=== PATIENT | female | born 1955 | race Caucasian/White ===

== ENCOUNTER 2016-09-04 09:01 | Day surgery (SDC) | payer OTHER ==
[~2016-09-04] VITALS: Ht 152.4 cm; Wt 70.8 kg
[~2016-09-04 09:01] MED LIST: ALEN70TA30 PO; ALPR0.5T6 PO; CETI10TA34 PO; HYDR-3498 PO; HYOS0.1212 SL; LETR2.5T PO; LEVO112T42 PO
[2016-09-04] MEDS ORDERED: OMEPRAZOLE (09:42)
[2016-09-04] MEDS ORDERED: COLACE (09:42)
[2016-09-04] MEDS ORDERED: LINZESS (09:42)
[2016-09-04 09:44] VITALS: Ht 152.4 cm; Wt 70.8 kg
[2016-09-04 10:06] VITALS: BP 129/77; PULSE 88; RESP 18
[2016-09-04] MEDS ORDERED: MIDAZOLAM 1 MG/ML 2 ML INJ ONE ×2 (10:58)
[2016-09-04] MEDS ORDERED: FENTAnyl 50 MCG/ML VIAL ONE (10:58)
--- NOTE | 2016-09-04 11:22 | GILP ---
DATE OF PROCEDURE: 09/04/2016 NAME OF PROCEDURES: 1. Esophagogastroduodenoscopy and biopsy. 2. Colonoscopy and biopsy. SURGEON: Fara Ruiz MD PREOPERATIVE DIAGNOSES: 1. Abdominal pain. 2. Change in bowel habit. POSTOPERATIVE DIAGNOSES: 1. Bile reflux gastritis. 2. Gastric mucosal biopsies were taken for Helicobacter pylori test. 3. Colonoscopy all the way to the cecum. 4. Small right colon polyp was removed using the biopsy forceps. 5. Internal hemorrhoids. INDICATION FOR THE PROCEDURE: Ms. Lisa George is a 61-year-old female patient who had upper abd ominal pain, not responding to therapy. She also had change in the bowel habit. The patient was sc heduled for endoscopy and colonoscopy for further evaluation. The procedures and possible complications are well explained to the patient, she understood and cons ented to the procedure. DESCRIPTION OF PROCEDURE: Under the influence of fentanyl and Versed, the gastroscope was carefully introduced into the esophagus and under direct vision, it was advanced to the stomach and through t he pylorus into the duodenal bulb and descending duodenum. FINDINGS: ESOPHAGUS: The mucosa was normal. STOMACH: The patient had gastritis. Gastric mucosal biopsies were taken for H. pylori test. The p atient had mild reflux. DUODENUM: Normal. The colonoscope was carefully introduced in the rectum and under direct vision, it was advanced all the way to the cecum. FINDINGS: The patient had a small right colon polyp and it was removed using the biopsy forceps. S he had internal hemorrhoids. She tolerated the procedures very well and there was no complication from the procedures. At the en d of the procedures, she was awake with stable vital signs and she was discharged home to the care o f her family. IMPRESSION: 1. Bile reflux gastritis. 2. Gastric mucosal biopsies were taken for Helicobacter pylori test. 3. Colonoscopy all the way to the cecum. 4. Small right colon polyp was removed. 5. Internal hemorrhoids. PLAN: 1. Continue omeprazole and Linzess. 2. Await histopathology reports. 3. Next screening colonoscopy in 10 years. Dictated By: FARA RUIZ MD GD/RODOLFO Conf#: [id number] DID#: [id number] CC: FARA RUIZ MD;*EndCC*
== END 2016-09-04 11:54 | disposition home or self-care (01) ==
LOC: GIL 09:01
PROVIDERS: ATTEND Internal Medicine Gastroenterology
DX: K63.5 Polyp of colon (principal); K29.60 Other gastritis without bleeding; K64.8 Other hemorrhoids
CPT/HCPCS: 43239; 45380; 87081; 88305; J2250; J3010; Z7610

== ENCOUNTER 2017-10-30 16:49 | Emergency (ER) | END 2017-10-30 18:10 | disposition home or self-care (01) ==

== ENCOUNTER 2017-11-01 09:57 | Emergency (ER) | END 2017-11-01 10:50 | disposition home or self-care (01) ==

== ENCOUNTER 2018-02-22 15:52 | Emergency (ER) | END 2018-02-22 20:46 | disposition home or self-care (01) ==

== ENCOUNTER 2018-09-27 15:18 | Emergency (ER) | payer OTHER ==
[~2018-09-27] VITALS: Ht 154.9 cm; Wt 73.0 kg
[~2018-09-27 15:18] MED LIST changes: -ALEN70TA30 PO; -ALPR0.5T6 PO; +BENZ200C68 PO; -CETI10TA34 PO; +COLACE; -HYDR-3498 PO; +HYDR-4011 PO; -HYOS0.1212 SL; +IBUP-1542 PO; -LETR2.5T PO; +LEVO500T48 PO; +LINZESS; +MED4DP PO; +OMEPRAZOLE; +PROM5SYR2 PO
[2018-09-27 15:20] VITALS: BP 163/78; PULSE 89; RESP 18; Ht 154.9 cm; Wt 73.0 kg
[2018-09-27] MEDS ORDERED: ONDANSETRON (ODT) 4 MG TAB ODT STA (16:35)
[2018-09-27] MEDS ORDERED: morphine 4 MG/ML VIAL IM STA (16:35)
--- NOTE | 2018-09-27 16:49 | ERD ---
ER Documentation Chief Complaint Chief Complaint CHRONIC LOW BACK PAIN X 5 DAYS HPI 63-year-old female presents with pain in her lower back that radiates down her right lower extremity she has had for 5 days. She has had this type of pain in the past that she does have a history of sciatica. Motrin used to help her but she continues to take Motrin is not helping anymore. No injury or trauma. No bowel or bladder incontinence or saddle anesthesia. At times she gets some tingling type of pain in her right lower extremity. She is ambulatory. No fevers. No urinary symptoms. ROS All systems reviewed and are negative except as per history of present illness. Medications Home Meds Active Scripts Hydrocodone/Acetaminophen ([place] 5-325 Tablet) 1 Each Tablet, 1 EACH PO Q6, #15 TAB Prov:NANDINI CORDERO 02/22/18 Ibuprofen* (Motrin*) 600 Mg Tab, 600 MG PO Q6, #30 TAB Prov:NANDINI CORDERO 02/22/18 Promethazine HCl/Codeine (Prometh-Codein 6.25-10 mg/5 ml) 5 Ml Syrup, 5 ML PO Q6 for 7 Days Prov:NANDINI CORDERO 11/01/17 Benzonatate* (Benzonatate*) 200 Mg Capsule, 200 MG PO TID PRN for COUGH, #15 CAP Prov:POPPY SWANSON PA-C 10/30/17 Levofloxacin* (Levaquin*) 500 Mg Tablet, 500 MG PO DAILY for 10 Days, #10 TAB Prov:POPPY SWANSON PA-C 10/30/17 Methylprednisolone* (Medrol* DOSE PACK) 4 Mg/Dose-Pack Tab.ds.pk, 4 MG PO . DIRECTED, #1 PACKET Prov:POPPY SWANSON PA-C 10/30/17 Reported Medications [Colace] No Conflict Check 09/04/16 [Linzess] No Conflict Check 09/04/16 [Omeprazole] No Conflict Check 09/04/16 Levothyroxine Sodium* (Levoxyl*) 112 Mcg Tablet, 112 MCG PO BEFORE BREAKFAST, #30 TAB 11/27/15 Allergies Allergies: Coded Allergies: No Known Allergy (Unverified , 09/27/18) PMhx/Soc History of Surgery: Yes (HYSTERECTOMY, APPENDECTOMY) Anesthesia Reaction: No Hx Neurological Disorder: No Hx Respiratory Disorders: No Hx Cardiac Disorders: No Hx Miscellaneous Medical Probl: Yes (BREAST CA) Hx Alcohol Use: No Hx Substance Use: No Hx Tobacco Use: No FmHx Family History: No diabetes Physical Exam Vitals Vital Signs Date Temp Pulse Resp B/P (MAP) Pulse Ox O2 O2 Flow FiO2 Time Delivery Rate 09/27/18 98.1 89 18 163/78 100 15:20 (106) Physical Exam INITIAL VITAL SIGNS: Reviewed by me GENERAL: Awake, alert and oriented x 4, well appearing, nontoxic, speaking in full sentences. No acute distress HEAD: Atraumatic NECK: Supple. No masses. Full range of motion. No meningismus. No midline tenderness. RESPIRATORY: Clear to auscultation bilaterally. Symmetric chest wall rise. No wheezing or rales. No accessory muscle use. CV: Regular rate and rhythm. No murmurs, rubs, or gallops. EXTREMITIES: No clubbing or cyanosis. No edema. Moving all extremities normally. Sensation to light touch is intact throughout Back Exam: Compartments: Soft Motor: Normal flexion and extension of bilateral hip/knee/ankle/foot Sensation: Intact to light touch throughout Bones: No midline TTP Results 24 hrs Current Medications Medications Dose Sig/[place] Start Time Status Last (Trade) Ordered Route PRN Stop Time Admin Dose Reason Admin Morphine 4 mg ONCE STAT 09/27/18 DC 09/27/18 Sulfate IM 16:35 09/27/18 16:45 (morphine) 16:36 Ondansetron 8 mg ONCE STAT 09/27/18 DC 09/27/18 HCl (Zofran ODT 16:35 09/27/18 16:45 Odt) 16:36 Procedures/MDM 63-year-old is here with back pain. The differential diagnosis includes but is not limited to muscle strain, ligament strain, contusion, arthritis, discogenetic disease, non-musculoskeletal, cauda equina syndrome, cord compression, abscess and others. History and physical exam findings are consistent with sciatica. She was given an injection of morphine and Zofran ODT for pain control and a discharge with tramadol and Flexeril. As well as a Medrol Dosepak. Patient counseled regarding my diagnostic impression and care plan. Prior to discharge all questions answered. Pt agrees with treatment plan and understands strict return precautions. Pt is instructed to follow up with primary care provider within 24-48 hours. Precautionary instructions provided including instructions to return to the ER if not improving or for any worsening or changing symptoms or concerns. Departure Diagnosis: Primary Impression: Back pain Condition: Stable WILMA ORTIZ PA-C Sep 27, 2018 16:49
[2018-09-27] MEDS ORDERED: CYCL10TA7 PO (16:50)
[2018-09-27] MEDS ORDERED: TRAM50TA2 PO (16:50)
[2018-09-27] MEDS ORDERED: MED4DP PO (16:50)
== END 2018-09-27 17:07 | disposition home or self-care (01) ==
LOC: FTE 15:18
DX: M54.5 Low back pain (principal); Z85.3 Personal history of malignant neoplasm of breast
CPT/HCPCS: 96372; J2270; Z7502; Z7610

== ENCOUNTER 2018-12-07 10:29 | Emergency (ER) | payer OTHER ==
[~2018-12-07] VITALS: Ht 152.4 cm; Wt 72.5 kg
[~2018-12-07 10:29] MED LIST changes: +CYCL10TA7 PO; +TRAM50TA2 PO
[2018-12-07 10:43] VITALS: BP 134/72; PULSE 74; RESP 16; Ht 152.4 cm; Wt 72.5 kg
[2018-12-07] MEDS ORDERED: KETOROLAC 30 MG INJ IM STA (11:27)
[2018-12-07] MEDS ORDERED: IBUP-1542 PO (13:57)
--- NOTE | 2018-12-07 13:59 | ERD ---
ER Documentation Chief Complaint Chief Complaint RT LOWER BACK PAIN RADIATING DOWNWARD, HX SCIATICA HPI 63-year-old female presents the emergency department complaining of back pain. Patient states that she has been having lower back pain radiating down her right leg. Patient reports no fevers, chills, numbness, tingling, bowel or bladder incontinence. Patient reports no trauma. Patient reports the pain is mild to moderate. ROS All systems reviewed and are negative except as per history of present illness. Medications Home Meds Active Scripts Ibuprofen* (Ibuprofen*) 600 Mg Tablet, 600 MG PO Q6H PRN for PAIN, #20 TAB Prov:BROWN HUSAIN 12/07/18 Methylprednisolone* (Medrol* DOSE PACK) 4 Mg/Dose-Pack Tab.ds.pk, 4 MG PO . DIRECTED, #1 PACKET Prov:WILMA ORTIZ PA-C 09/27/18 Tramadol HCl (Tramadol HCl) 50 Mg Tablet, 50 MG PO Q4 PRN for PAIN, #20 TAB Prov:WILMA ORTIZ PA-C 09/27/18 Cyclobenzaprine Hcl* (Cyclobenzaprine Hcl*) 10 Mg Tablet, 10 MG PO BID, #15 TAB Prov:WILMA ORTIZ PA-C 09/27/18 Hydrocodone/Acetaminophen ([place] 5-325 Tablet) 1 Each Tablet, 1 EACH PO Q6, #15 TAB Prov:NANDINI CORDERO 02/22/18 Ibuprofen* (Motrin*) 600 Mg Tab, 600 MG PO Q6, #30 TAB Prov:NANDINI CORDERO 02/22/18 Promethazine HCl/Codeine (Prometh-Codein 6.25-10 mg/5 ml) 5 Ml Syrup, 5 ML PO Q6 for 7 Days Prov:NANDINI CORDERO 11/01/17 Benzonatate* (Benzonatate*) 200 Mg Capsule, 200 MG PO TID PRN for COUGH, #15 CAP Prov:POPPY SWANSON PA-C 10/30/17 Levofloxacin* (Levaquin*) 500 Mg Tablet, 500 MG PO DAILY for 10 Days, #10 TAB Prov:POPPY SWANSON PA-C 10/30/17 Methylprednisolone* (Medrol* DOSE PACK) 4 Mg/Dose-Pack Tab.ds.pk, 4 MG PO . DIRECTED, #1 PACKET Prov:POPPY SWANSON PA-C 10/30/17 Reported Medications [Colace] No Conflict Check 09/04/16 [Linzess] No Conflict Check 09/04/16 [Omeprazole] No Conflict Check 09/04/16 Levothyroxine Sodium* (Levoxyl*) 112 Mcg Tablet, 112 MCG PO BEFORE BREAKFAST, #30 TAB 11/27/15 Allergies Allergies: Coded Allergies: No Known Allergy (Unverified , 12/07/18) PMhx/Soc History of Surgery: Yes (HYSTERECTOMY, APPENDECTOMY) Anesthesia Reaction: No Hx Neurological Disorder: No Hx Respiratory Disorders: No Hx Cardiac Disorders: No Hx Miscellaneous Medical Probl: Yes (BREAST CA) Hx Alcohol Use: No Hx Substance Use: No Hx Tobacco Use: No Physical Exam Vitals Vital Signs Date Temp Pulse Resp B/P (MAP) Pulse Ox O2 O2 Flow FiO2 Time Delivery Rate 12/07/18 97.1 74 16 134/72 97 10:43 (92) Physical Exam GENERAL: The patient is well developed and appropriate for usual state of health in no apparent distress HEENT: Pupils equal, round, and reactive to light. EOMI. There is no scleral icterus. NECK: C-spine is soft and supple, there is no meningismus. There is no cervical lymphadenopathy. LUNGS: Clear to auscultation bilaterally. There are no rales, wheezes or rhonchi. HEART: Regular rate and rhythm, no murmurs, clicks, rubs or gallops. ABDOMEN: Soft, non-tender, non-distended. There are bowel sounds in all four quadrants. No rebound or guarding. EXTREMITIES: There is no peripheral cyanosis or edema. No focal swelling or erythema. Back: No midline spinal tenderness or spasm. NEURO: The patient moves all four extremities with 5/5 strength. Cranial nerves II - XII are intact. Normal gait. Alert and oriented SKIN: There is no apparent rash or petechiae. HEME/LYMPHATIC: There is no evidence of excessive bruising or lymphedema. PSYCHIATRIC: The patient does not appear anxious or depressed. Results 24 hrs Current Medications Medications Dose Sig/[place] Start Time Status Last (Trade) Ordered Route PRN Stop Time Admin Dose Reason Admin Ketorolac 30 mg ONCE STAT 12/07/18 DC 12/07/18 Tromethamine IM 11:27 11:48 (Toradol) 12/07/18 11:28 Procedures/MDM Patient was taken to a room, seen and evaluated. Comfort measures were in itiated. Diagnostic tests were ordered and reviewed. RADIOLOGY: CT scan of the back was ordered given her history of breast cancer. This was reviewed by myself and the radiologist REEVALUATION: Patient continued to be comfortable MEDICAL DECISION MAKING: Patient presents today with atraumatic back pain. Although infection, malignancy, GI, , and vascular causes have been considered in this patient, the patients clinical presentation is most consistent with a musculoskeletal cause. There is neither evidence of any acute neurologic damage, nor of loss of function and thus, advanced imaging studies have been deferred. Patient will be treated conservatively with appropriate pain control with precautionary discharge instructions provided. Departure Diagnosis: Primary Impression: Back pain Condition: Stable Patient Instructions: Back Pain (Acute Or Chronic) Additional Instructions: Consulte a herrera mdico para el seguimiento segn lo discutido. Lleve gulshan copia de los resultados de herrera prueba, si corresponde, a esta visita de seguimiento. Consulte a herrera mdico o regrese aqu si james sntomas no mejoran car se esperaba. En cualquier momento, regrese al departamento de emergencias por cualquier cambio o empeoramiento en james sntomas. BROWN HUSAIN December 07, 2018 13:59
== END 2018-12-07 14:05 | disposition home or self-care (01) ==
LOC: FTE 10:29
DX: M54.5 Low back pain (principal); Z85.3 Personal history of malignant neoplasm of breast
CPT/HCPCS: 72131; 96372; J1885; Z7502

== ENCOUNTER 2018-12-30 13:43 | Observation (INO) | payer OTHER ==
[~2018-12-30] VITALS: Ht 152.4 cm; Wt 71.8 kg
[2018-12-30] MEDS ORDERED: SOD CHLORIDE 0.9% 500 ML IV STA (13:55)
--- NOTE | 2018-12-30 13:58 | ERD ---
ER Documentation Chief Complaint Chief Complaint RIGHT SIDED NUMBNESS THAT STARTED YESTERDAY AT NOON HPI This is a 63-year-old female with a past medical history of anxiety and hypertension. The patient also has a remote history of breast carcinoma on the right currently taking oral chemotherapy pills as she states she is in [place]. The patient presents to the emergency department for worsening of numbness to the right side of her body. The patient indicated that 25 hours prior to arrival she developed numbness in the right side of her face. She indicated that it started to progress to her right arm. She slept throughout the evening and when she awoke this morning she noticed numbness on the right side of her lower extremity. She states however she denies any weakness of her upper or lower extremities. She denies any slurred speech. She denies a headache. She has no neck pain. She denies any changes of vision. She said no fevers or shaking or chills. She states she has not been undergoing a significant amount of stress and has never had any similar symptoms in the past. ROS All systems reviewed and are negative except as per history of present illness. Medications Home Meds Active Scripts Ibuprofen* (Ibuprofen*) 600 Mg Tablet, 600 MG PO Q6H PRN for PAIN, #20 TAB Prov:BROWN HUSAIN 12/07/18 Methylprednisolone* (Medrol* DOSE PACK) 4 Mg/Dose-Pack Tab.ds.pk, 4 MG PO . DIRECTED, #1 PACKET Prov:WILMA ORTIZ PA-C 09/27/18 Tramadol HCl (Tramadol HCl) 50 Mg Tablet, 50 MG PO Q4 PRN for PAIN, #20 TAB Prov:WILMA ORTIZ PA-C 09/27/18 Cyclobenzaprine Hcl* (Cyclobenzaprine Hcl*) 10 Mg Tablet, 10 MG PO BID, #15 TAB Prov:WILMA ORTIZ PA-C 09/27/18 Hydrocodone/Acetaminophen ([place] 5-325 Tablet) 1 Each Tablet, 1 EACH PO Q6, #15 TAB Prov:NANDINI CORDERO 02/22/18 Ibuprofen* (Motrin*) 600 Mg Tab, 600 MG PO Q6, #30 TAB Prov:NANDINI CORDERO 02/22/18 Promethazine HCl/Codeine (Prometh-Codein 6.25-10 mg/5 ml) 5 Ml Syrup, 5 ML PO Q6 for 7 Days Prov:NANDINI CORDERO 11/01/17 Benzonatate* (Benzonatate*) 200 Mg Capsule, 200 MG PO TID PRN for COUGH, #15 CAP Prov:POPPY SWANSON PA-C 10/30/17 Levofloxacin* (Levaquin*) 500 Mg Tablet, 500 MG PO DAILY for 10 Days, #10 TAB Prov:POPPY SWANSON PA-C 10/30/17 Methylprednisolone* (Medrol* DOSE PACK) 4 Mg/Dose-Pack Tab.ds.pk, 4 MG PO . DIRECTED, #1 PACKET Prov:POPPY SWANSON PA-C 10/30/17 Reported Medications Alprazolam* (Alprazolam*) 0.5 Mg Tablet, 0.5 MG PO BID PRN for ANXIETY, TAB 12/30/18 Baclofen* (Baclofen*) 10 Mg Tablet, 10 MG PO QHS, TAB 12/30/18 [Colace] No Conflict Check 09/04/16 [Linzess] No Conflict Check 09/04/16 [Omeprazole] No Conflict Check 09/04/16 Levothyroxine Sodium* (Levoxyl*) 112 Mcg Tablet, 112 MCG PO BEFORE BREAKFAST, #30 TAB 11/27/15 Allergies Allergies: Coded Allergies: No Known Allergy (Unverified , 12/07/18) PMhx/Soc History of Surgery: Yes (HYSTERECTOMY, APPENDECTOMY,CHOLECYSTECTOMY) Anesthesia Reaction: No Hx Neurological Disorder: No Hx Respiratory Disorders: No Hx Cardiac Disorders: No Hx Miscellaneous Medical Probl: Yes (BREAST CA) Hx Alcohol Use: Yes (OCCASSIONAL) Hx Substance Use: No Hx Tobacco Use: No Physical Exam Vitals Vital Signs Date Temp Pulse Resp B/P (MAP) Pulse Ox O2 O2 Flow FiO2 Time Delivery Rate 12/30/18 98.0 75 18 177/80 99 13:47 (112) Physical Exam Constitutional:Well-developed. Well-nourished. HEENT:Normocephalic. Atraumatic.Pupils were equal round reactive to light. Moist mucous membranes.No tonsillar exudates. Neck: No nuchal rigidity. No lymphadenopathy. No posterior cervical spine tenderness or step-offs. Respiratory: Not using accessory muscles of respiration.Lungs were clear to auscultation bilaterally. No rhonchi. No rales. No wheezing. Cardiovascular: Regular rate regular rhythm.No murmurs. No rubs were appreciated.S1, S2 normal. Distal pulses are palpable 2+ bilaterally. GI: Abdomen was soft. Nontender. Non Distended. No pulsatile abdominal masses or bruits. No rebound. No guarding. Bowel sounds were present and normal. Muscle skeletal: Full range of motion of both the upper and lower extremities bilaterally.Normal muscle tone.No assymetrical calf tenderness or swelling. Skin: No petechia, no purpura. No lesions on the palms or the soles of the feet. No maculopapular rash. NEURO: Patient was alert, awake, orientated x3.No facial droop. Gait observed and normal with no ataxia.Speech had regular rate and rhythm. Sensation decreased to sharp and dull on the right trigeminal nerve distribution and right upper and lower extremity compared to the left. Romberg sign negative. No pronator drift. Result Diagram: 12/30/18 1407 12/30/18 1407 Results 24 hrs Laboratory Tests Test 12/30/18 14:06 12/30/18 14:07 12/30/18 14:25 Prothrombin Time 12.7 Sec Prothrombin Time Ratio 1.0 INR International Normalized Ratio 0.94 Activated Partial Thromboplast Time 32.1 Sec White Blood Count 8.7 10^3/ul Red Blood Count 4.57 10^6/ul Hemoglobin 12.2 g/dl Hematocrit 38.7 % Mean Corpuscular Volume 84.7 fl Mean Corpuscular Hemoglobin 26.7 pg Mean Corpuscular Hemoglobin Concent 31.5 g/dl Red Cell Distribution Width 14.1 % Platelet Count 284 10^3/UL Mean Platelet Volume 10.6 fl Immature Granulocytes % 0.200 % Neutrophils % 48.1 % Lymphocytes % 43.7 % Monocytes % 6.1 % Eosinophils % 1.4 % Basophils % 0.5 % Nucleated Red Blood Cells % 0.0 /100WBC Immature Granulocytes # 0.020 10^3/ul Neutrophils # 4.2 10^3/ul Lymphocytes # 3.8 10^3/ul Monocytes # 0.5 10^3/ul Eosinophils # 0.1 10^3/ul Basophils # 0.0 10^3/ul Nucleated Red Blood Cells # 0.0 10^3/ul Sodium Level 142 mmol/L Potassium Level 4.2 mmol/L Chloride Level 106 mmol/L Carbon Dioxide Level 28 mmol/L Anion Gap 8 Blood Urea Nitrogen 13 mg/dl Creatinine 0.58 mg/dl Est Glomerular Filtrat Rate mL/min > 60 mL/min Glucose Level 128 mg/dl Hemoglobin A1c 5.5 % Calcium Level 9.4 mg/dl Total Bilirubin 0.3 mg/dl Direct Bilirubin 0.00 mg/dl Indirect Bilirubin 0.3 mg/dl Aspartate Amino Transf (AST/SGOT) 40 IU/L Alanine Aminotransferase (ALT/SGPT) 39 IU/L Alkaline Phosphatase 103 IU/L Troponin I < 0.012 ng/ml Total Protein 7.8 g/dl Albumin 4.4 g/dl Globulin 3.40 g/dl Albumin/Globulin Ratio 1.29 Triglycerides Level 141 mg/dl Cholesterol Level 204 mg/dl LDL Cholesterol, Calculated 126 mg/dl HDL Cholesterol 50 mg/dl Cholesterol/HDL Ratio 4.0 RATIO Bedside Glucose 130 mg/dL Current Medications Medications Dose Sig/[place] Start Time Status Last (Trade) Ordered Route PRN Stop Time Admin Dose Reason Admin Sodium 500 ml @ Q1H STAT 12/30/18 DC 12/30/18 Chloride 500 mls/hr IV 13:55 12/30/18 14:28 14:54 Lorazepam 1 mg ONCE ONCE 12/30/18 DC 12/30/18 (Ativan) IV 14:30 12/30/18 14:28 14:31 Procedures/MDM Is a 63 female that presented to the emergency department with strokelike symptoms and a code stroke was called. Patient was admitted placed on a chronic monitor continuous pulse oximetry and IV access was established by nursing to. The patient had a CT scan of her head which is found to be normal. She did receive aspirin. The patient was seen by the telemetry neurologist. The patie nt is not a TPA candidate due to the onset of her symptoms being over 24 hours ago. The patient will be admitted to undergo an MRI. She also indicated that she been undergoing an acute stress reaction at due to recent in the family. She became very anxious and did receive 1 mg of Ativan intravenously but she denied any suicidal homicidal thoughts ideations. No severe electrolyte abnormalities. No leukocytosis. 12 Lead EKG tracing ordered and reviewed by myself showed: Normal sinus rhythm of 68 bpm and no arrhythmia. NC interval normal. QRS duration normal. No ST segment elevation No ST segment depression. No changes consistent with acute ischemia. The patient will be admitted to the hospitalist. I did feel the patient was stable to go to the medical surgical floor. Departure Diagnosis: Primary Impression: Numbness Condition: Serious BUDDY CAMACHO MD Dec 30, 2018 13:58
[2018-12-30] MEDS ORDERED: LORAZEPAM 2 MG INJ IV ONE (14:30)
[2018-12-30] MEDS ORDERED: ONDANSETRON 4 MG INJ IV PRN ×2 (15:30→17:00)
[2018-12-30] MEDS ORDERED: ACETAMINOPHEN 325 MG TAB PO PRN ×2 (15:30→17:00)
--- NOTE | 2018-12-30 15:58 | STROKE ---
Date/Time of Note Date/Time of Note DATE: 12/30/18 TIME: 18:56 Patient Information General Arrival Date Age 63 Gender female Weight 71.7 kg POC Glucose Glucose Result Bedside Glucose - 72 Hours Test 12/30/18 14:25 Bedside Glucose 130 mg/dL (70-220) Vital Signs Vital Signs Vital Signs Date Temp Pulse Resp B/P (MAP) Pulse Ox O2 O2 Flow FiO2 Time Delivery Rate 12/30/18 98.0 75 18 133/70 100 Room Air 15:52 (91) Patient History Current Medications Allergies: Coded Allergies: No Known Allergy (Unverified , 12/07/18) Labs Coagulation Labs: Coagulation Test 12/30/18 14:06 Activated Partial Thromboplast Time 32.1 Sec (23.0-35.0) NIH Stroke Scale NIH Stroke Scale Date/Time Recorded DATE: 12/30/18 TIME: 18:56 Submitted By Lee Owens t-PA Imaging Review Date/Time Imaging Reviewed DATE: 12/30/18 TIME: 18:56 t-PA Administration Weight 71.7 kg Recommedation submitted by Lee Owens Recommendations Recommendation 63-year-old right-handed female accompanied by her daughter presenting with right hemihypesthesia since noon yesterday. Not a candidate for tPA because we are now outside the time frame for such therapy. Not a candidate for thrombectomy because symptoms not suggestive of large vessel occlusion. Aspirin 325 now. BP < 200/110. Consultation with local inpatient neurologist. MRI Brain wo. CTA head and neck. TTE. Telemetry. Consider LINQ. PT/OT/SLT. Bedside swallow. Stroke Education. Smoking cessation counseling, if a smoker. Recommendations were discussed with ED . LEE OWENS MD Dec 30, 2018 15:58
[2018-12-30 16:24] VITALS: PULSE 77
[2018-12-30 16:25] VITALS: BP 125/65; PULSE 78; RESP 20
[2018-12-30 16:28] VITALS: Ht 152.4 cm; Wt 71.8 kg
[2018-12-30] MEDS ORDERED: HYDROCODONE/APAP (5/325) TAB PO PRN (17:00)
[2018-12-30] MEDS ORDERED: morphine 2 MG INJ IV PRN (17:00)
[2018-12-30] MEDS ORDERED: DOCUSATE SODIUM 100 MG CAP PO PRN (17:00)
[2018-12-30] MEDS ORDERED: ZOLPIDEM 5 MG TAB PO PRN (17:00)
[2018-12-30] MEDS ORDERED: NACL 0.9% 3 ML SYG IV SCH (17:00)
[2018-12-30] MEDS ORDERED: BACL10TA PO (17:10)
[2018-12-30] MEDS ORDERED: ALPR0.5T6 PO (17:10)
--- NOTE | 2018-12-30 17:29 | HP ---
Date/Time of Note Date/Time of Note DATE: 12/30/18 TIME: 17:24 Assessment/Plan VTE Prophylaxis Pharmacological prophylaxis: LMWH Lines/Catheters IV Catheter Type (from [facility]): Saline Lock Assessment/Plan Hospital Course 1. Right-sided weakness Etiology is likely secondary to migraine versus profound anxiety Patient's history and symptoms are atypical for CVA Neurology consultation obtained Follow-up on MRI, carotid ultrasound and 2D echo Aspirin statin PT and speech therapy evaluations Continue home anxiety medications 2. Hypothyroidism Continue home meds 3. Anxiety Continue home meds 4. Obesity Lifestyle changes 5. History of breast cancer Outpatient follow-up Prophylaxis: Lovenox Result Diagram: 12/30/18 1407 12/30/18 1407 Results 24hrs Laboratory Tests Test 12/30/18 14:06 12/30/18 14:07 12/30/18 14:25 Prothrombin Time 12.7 Prothrombin Time Ratio 1.0 INR International Normalized Ratio 0.94 Activated Partial Thromboplast Time 32.1 White Blood Count 8.7 Red Blood Count 4.57 Hemoglobin 12.2 Hematocrit 38.7 Mean Corpuscular Volume 84.7 Mean Corpuscular Hemoglobin 26.7 L Mean Corpuscular Hemoglobin Concent 31.5 L Red Cell Distribution Width 14.1 Platelet Count 284 Mean Platelet Volume 10.6 H Immature Granulocytes % 0.200 Neutrophils % 48.1 Lymphocytes % 43.7 Monocytes % 6.1 Eosinophils % 1.4 Basophils % 0.5 Nucleated Red Blood Cells % 0.0 Immature Granulocytes # 0.020 Neutrophils # 4.2 Lymphocytes # 3.8 H Monocytes # 0.5 Eosinophils # 0.1 Basophils # 0.0 Nucleated Red Blood Cells # 0.0 Sodium Level 142 Potassium Level 4.2 Chloride Level 106 Carbon Dioxide Level 28 Anion Gap 8 Blood Urea Nitrogen 13 Creatinine 0.58 Est Glomerular Filtrat Rate mL/min > 60 Glucose Level 128 Hemoglobin A1c 5.5 Calcium Level 9.4 Total Bilirubin 0.3 Direct Bilirubin 0.00 Indirect Bilirubin 0.3 Aspartate Amino Transf (AST/SGOT) 40 Alanine Aminotransferase (ALT/SGPT) 39 Alkaline Phosphatase 103 Troponin I < 0.012 Total Protein 7.8 Albumin 4.4 Globulin 3.40 H Albumin/Globulin Ratio 1.29 Triglycerides Level 141 Cholesterol Level 204 H LDL Cholesterol, Calculated 126 HDL Cholesterol 50 Cholesterol/HDL Ratio 4.0 Bedside Glucose 130 HPI/ROS Admit Date/Time Admit Date/Time Dec 30, 2018 at 15:26 Hx of Present Illness Patient is a 63-year-old female with a history of breast cancer, anxiety, hypothyroidism, obesity who presents with headache and subsequent numbness and weakness in the entire right side of the body. Onset of symptoms was yesterday afternoon, patient reports mild to moderate headache on the right side which then led to facial numbness and tingling and subsequent weakness in her right upper extremity and lower extremity. Patient was able to ambulate but became c oncerned and presented to the ED. Patient was outside the TPA window and CT head showed no evidence of CVA. Patient denies any history of migraine headaches or similar such symptoms. Patient does have a history of syncope and panic attacks, patient has no other complaints at this time. ROS Constitutional: no complaints, improved Eyes: no complaints ENT: no complaints Respiratory: no complaints Cardiovascular: no complaints Gastrointestinal: no complaints Genitourinary: no complaints Musculoskeletal: no complaints Skin: no complaints Neurologic: no complaints, focal-weakness Endocrine: no complaints Lymphatic: no complaints Psychological: no complaints, nl mood/affect Immunologic: no complaints PMH/Family/Social Past Medical History As per HPI Medications Current Medications Potassium Chloride/Sodium Chloride 1,000 ml @ 100 mls/hr Q10H IV ; Start 12/30/18 at 16:48 IV Flush (NS 3 ml) 3 ml PER PROTOCOL IV ; Start 12/30/18 at 17:00 Ondansetron HCl (Zofran Inj) 4 mg Q6H PRN IV NAUSEA/VOMITING; Start 12/30/18 at 17:00 Acetaminophen (Tylenol Tab) 650 mg Q6H PRN PO .PAIN 1-3 OR TEMP; Start 12/30/18 at 17:00 Acetaminophen/ Hydrocodone Bitart ([place] (5/325)) 1 tab Q6H PRN PO .MOD PAIN 4- 6; Start 12/30/18 at 17:00 Morphine Sulfate (morphine) 2 mg Q4H PRN IV .SEVERE PAIN 7-10; Start 12/30/18 at 17:00 Docusate Sodium (Colace) 100 mg Q12H PRN PO .CONSTIPATION; Start 12/30/18 at 17:00 Zolpidem Tartrate (Ambien) 5 mg QHS PRN PO .INSOMNIA; Start 12/30/18 at 17:00 Enoxaparin Sodium (Lovenox) 40 mg DAILY SC ; Start 12/31/18 at 09:00; Status UNV Coded Allergies: No Known Allergy (Unverified , 12/07/18) Past Surgical History Past Surgical Hx: appendectomy, cholecystectomy, other (Lumpectomy and hysterectomy) Family History Significant Family History: no pertinent family hx Social History Alcohol Use: rarely Smoking Status: Former smoker Drug Use: none Exam/Review of Systems Vital Signs Vitals Vital Signs Date Temp Pulse Resp B/P (MAP) Pulse Ox O2 O2 Flow FiO2 Time Delivery Rate 12/30/18 97.8 78 20 125/65 97 Room Air 16:25 (85) Exam Constitutional: alert, oriented Respiratory: clear to auscultation Cardiovascular: regular rate and rhythm Gastrointestinal: soft; No distended Neurological: focal weakness (4- out of 5 weakness on the right side, no facial droop) ALEX OSCAR Dec 30, 2018 17:29
[2018-12-30] MEDS ORDERED: ALPRAZOLAM 0.5 MG TAB PO PRN (17:30)
[2018-12-30] MEDS ORDERED: IBUPROFEN 600 MG TAB PO PRN (17:30)
[2018-12-30] MEDS ORDERED: BENZONATATE 100 MG CAP PO PRN (17:30)
[2018-12-30] MEDS: ASPIRIN (EC) 325 MG TAB PO SCH (18:18)
[2018-12-30] MEDS: 1/2 NS + KCL 20 MEQ 1,000 ML IV SCH (18:19)
[2018-12-30] MEDS: ENOXAPARIN 40 MG/0.4 ML SYG SC SCH (18:26)
[2018-12-30 19:14] VITALS: BP 118/61; PULSE 80; RESP 18
[2018-12-30 20:00] VITALS: PULSE 82
[2018-12-30] MEDS ORDERED: BACLOFEN 10 MG TAB PO SCH (21:00)
[2018-12-30] MEDS ORDERED: ATORVASTATIN 40 MG TAB PO SCH (21:00)
[2018-12-30 23:43] VITALS: BP 120/68; PULSE 77; RESP 18
[2018-12-31] VITALS (9 sets, daily range): BP systolic 104–129; BP diastolic 57–73; PULSE 68–77; RESP 16
[2018-12-31] MEDS: 1/2 NS + KCL 20 MEQ 1,000 ML IV SCH ×2 (05:33→11:57)
[2018-12-31] MEDS ORDERED: LEVOTHYROXINE 112 MCG TAB PO SCH (07:00)
[2018-12-31] MEDS: ASPIRIN (EC) 325 MG TAB PO SCH (08:11)
--- NOTE | 2018-12-31 13:26 | CONSI ---
Assessment/Plan Assessment/Plan Assessment/Plan (Recall) 63 F c/ Hx of breast Ca s/p chemo...who presents for evaluation of acute R face, arm, and leg numbness in the context of headache. The clinical picture is most consistent w/ complicated migraine. Minor stroke was additionally considered; however, MRI brain is reassuringly negative for acute intracranial pathology. P: Agree w/ asa/lipitor daily for secondary stroke prevention (given chronic lacune noted on MRI..) Pain control and other medical management per primary PT/OT/ST as necessary Will follow clinically Consultation Date/Type/Reason Admit Date/Time Dec 30, 2018 at 15:26 Type of Consult Neurology Reason for Consultation R sided numbness Date/Time of Note DATE: 12/31/18 TIME: 13:18 Hx of Present Illness 63 F w// Hx of breast Ca s/p chemo 4 yrs ago....who presents for evaluation of R face arm and leg numbness in the context of R sided headache... She denies rsoaline weakness... It is elsewhere noted: Patient is a 63-year-old female with a history of breast cancer, anxiety, hypothyroidism, obesity who presents with headache and subsequent numbness and weakness in the entire right side of the body. Onset of symptoms was yesterday afternoon, patient reports mild to moderate headache on the right side which then led to facial numbness and tingling and subsequent weakness in her right upper extremity and lower extremity. Patient was able to ambulate but became concerned and presented to the ED. Patient was outside the TPA window and CT head showed no evidence of CVA. Patient denies any history of migraine headaches or similar such symptoms. Patient does have a history of syncope and panic attacks, patient has no other complaints at this time. As noted above, o/w neg Objective Exam Vitals Vital Signs Date Temp Pulse Resp B/P (MAP) Pulse Ox O2 O2 Flow FiO2 Time Delivery Rate 12/31/18 97.5 74 16 129/70 97 11:32 (89) 12/31/18 Room Air 03:36 Intake and Output 12/30/18 12/30/18 12/31/18 1515:00 23:00 07:00 IntakeIntake Total 1550 ml BalanceBalance 1550 ml Exam PE: Gen Appearance: No Apparent Distress HEENT: Normocephalic Cardiovascular: Regular rate Lungs: Clear bilaterally Abdomen: Soft Extremities: Dry NE: The patient was alert and oriented. Language was normal. Fund of knowledge was normal. Pupils were equal and reactive to light. There was no afferent pupillary defect. Visual whittaker were normal. Funduscopic examination was limited. Extra-ocular movements were full. Ptosis was absent. There was no nystagmus. Facial sensation was normal. Face was symmetric with normal strength. Hearing was intact. Palate movements were normal. Neck strength was normal. There was normal tongue bulk and speed of movement. Tone was normal. Muscle bulk was normal. I did not see fasciculations. Arms and legs were strong. Vibration sensation was reduced on the right. Temperature and pinprick sensation was reduced in the right face arm and leg. Rapid alternating movements were normal. There was no dysmetria. There was no intention tremor. Gait was deferred due to bedrest. Arm and leg reflexes were symmetric. Orozco's sign was absent. Plantar responses were flexor. Results Result Diagram: 12/31/18 0625 12/31/18 0625 Results 24hrs Laboratory Tests Test 12/30/18 14:06 12/30/18 14:07 12/30/18 14:25 12/31/18 06:25 Prothrombin Time 12.7 Prothrombin Time Ratio 1.0 INR International 0.94 Normalized Ratio Activated 32.1 Partial Thromboplast Time White Blood Count 8.7 6.2 # Red Blood Count 4.57 4.04 L Hemoglobin 12.2 10.9 L Hematocrit 38.7 34.7 L Mean Corpuscular Volume 84.7 85.9 Mean Corpuscular 26.7 L 27.0 L Hemoglobin Mean Corpuscular 31.5 L 31.4 L Hemoglobin Concent Red Cell Distribution 14.1 14.3 Width Platelet Count 284 249 Mean Platelet Volume 10.6 H 10.2 Immature Granulocytes % 0.200 0.200 Neutrophils % 48.1 28.9 L Lymphocytes % 43.7 59.8 H Monocytes % 6.1 7.4 Eosinophils % 1.4 2.9 Basophils % 0.5 0.8 Nucleated Red Blood 0.0 0.0 Cells % Immature Granulocytes # 0.020 0.010 Neutrophils # 4.2 1.8 Lymphocytes # 3.8 H 3.7 H Monocytes # 0.5 0.5 Eosinophils # 0.1 0.2 Basophils # 0.0 0.1 Nucleated Red Blood 0.0 0.0 Cells # Sodium Level 142 143 Potassium Level 4.2 4.2 Chloride Level 106 111 H Carbon Dioxide Level 28 27 Anion Gap 8 5 Blood Urea Nitrogen 13 9 Creatinine 0.58 0.56 Est Glomerular Filtrat > 60 > 60 Rate mL/min Glucose Level 128 83 # Hemoglobin A1c 5.5 5.4 Calcium Level 9.4 8.6 Total Bilirubin 0.3 Direct Bilirubin 0.00 Indirect Bilirubin 0.3 Aspartate Amino 40 Transf (AST/SGOT) Alanine 39 Aminotransferase (ALT/SG PT) Alkaline Phosphatase 103 Troponin I < 0.012 Total Protein 7.8 Albumin 4.4 Globulin 3.40 H Albumin/Globulin Ratio 1.29 Triglycerides Level 141 176 H Cholesterol Level 204 H 177 LDL Cholesterol, 126 105 Calculated HDL Cholesterol 50 37 # Cholesterol/HDL Ratio 4.0 4.7 Bedside Glucose 130 Phosphorus Level 3.1 Magnesium Level 2.0 Past Medical History reviewed Home Meds Active Scripts Ibuprofen* (Ibuprofen*) 600 Mg Tablet, 600 MG PO Q6H PRN for PAIN, #20 TAB Prov:BROWN HUSAIN 12/07/18 Methylprednisolone* (Medrol* DOSE PACK) 4 Mg/Dose-Pack Tab.ds.pk, 4 MG PO . DIRECTED, #1 PACKET Prov:WILMA ORTIZ PA-C 09/27/18 Tramadol HCl (Tramadol HCl) 50 Mg Tablet, 50 MG PO Q4 PRN for PAIN, #20 TAB Prov:WILMA ORTIZ PA-C 09/27/18 Cyclobenzaprine Hcl* (Cyclobenzaprine Hcl*) 10 Mg Tablet, 10 MG PO BID, #15 TAB Prov:WILMA ORTIZ PA-C 09/27/18 Hydrocodone/Acetaminophen ([place] 5-325 Tablet) 1 Each Tablet, 1 EACH PO Q6, #15 TAB Prov:NANDINI CORDERO 02/22/18 Ibuprofen* (Motrin*) 600 Mg Tab, 600 MG PO Q6, #30 TAB Prov:NANDINI CORDERO 02/22/18 Promethazine HCl/Codeine (Prometh-Codein 6.25-10 mg/5 ml) 5 Ml Syrup, 5 ML PO Q6 for 7 Days Prov:NANDINI CORDERO 11/01/17 Benzonatate* (Benzonatate*) 200 Mg Capsule, 200 MG PO TID PRN for COUGH, #15 CAP Prov:POPPY SWANSON PA-C 10/30/17 Levofloxacin* (Levaquin*) 500 Mg Tablet, 500 MG PO DAILY for 10 Days, #10 TAB Prov:POPPY SWANSON PA-C 10/30/17 Methylprednisolone* (Medrol* DOSE PACK) 4 Mg/Dose-Pack Tab.ds.pk, 4 MG PO . DIRECTED, #1 PACKET Prov:POPPY SWANSON PA-C 10/30/17 Reported Medications Alprazolam* (Alprazolam*) 0.5 Mg Tablet, 0.5 MG PO BID PRN for ANXIETY, TAB 12/30/18 Baclofen* (Baclofen*) 10 Mg Tablet, 10 MG PO QHS, TAB 12/30/18 [Colace] No Conflict Check 09/04/16 [Linzess] No Conflict Check 09/04/16 [Omeprazole] No Conflict Check 09/04/16 Levothyroxine Sodium* (Levoxyl*) 112 Mcg Tablet, 112 MCG PO BEFORE BREAKFAST, #30 TAB 11/27/15 Medications Current Medications Potassium Chloride/Sodium Chloride 1,000 ml @ 100 mls/hr Q10H IV Last administered on 12/31/18at 05:33; Admin Dose 100 MLS/HR; Start 12/30/18 at 16:48 IV Flush (NS 3 ml) 3 ml PER PROTOCOL IV ; Start 12/30/18 at 17:00 Ondansetron HCl (Zofran Inj) 4 mg Q6H PRN IV NAUSEA/VOMITING; Start 12/30/18 at 17:00 Acetaminophen (Tylenol Tab) 650 mg Q6H PRN PO .PAIN 1-3 OR TEMP; Start 12/30/18 at 17:00 Acetaminophen/ Hydrocodone Bitart ([place] (5/325)) 1 tab Q6H PRN PO .MOD PAIN 4- 6; Start 12/30/18 at 17:00 Morphine Sulfate (morphine) 2 mg Q4H PRN IV .SEVERE PAIN 7-10; Start 12/30/18 at 17:00 Docusate Sodium (Colace) 100 mg Q12H PRN PO .CONSTIPATION; Start 12/30/18 at 17:00 Zolpidem Tartrate (Ambien) 5 mg QHS PRN PO .INSOMNIA; Start 12/30/18 at 17:00 Enoxaparin Sodium (Lovenox) 40 mg DAILY SC Last administered on 12/30/18 18:26; Admin Dose 40 MG; Start 12/30/18 at 18:30 Alprazolam (Xanax) 0.5 mg BID PRN PO ANXIETY; Start 12/30/18 at 17:30 Baclofen (Lioresal) 10 mg QHS PO Last administered on 12/30/18 21:41; Admin Dose 10 MG; Start 12/30/18 at 21:00 Benzonatate (Tessalon) 200 mg TID PRN PO COUGH; Start 12/30/18 at 17:30 Ibuprofen (Motrin) 600 mg Q6H PRN PO PAIN; Start 12/30/18 at 17:30 Levothyroxine Sodium (Synthroid) 112 mcg BEFORE BREAKFAST PO Last administered on 12/31/18 06:24; Admin Dose 112 MCG; Start 12/31/18 at 07:00 Aspirin (Ecotrin) 325 mg DAILY PO Last administered on 12/31/18at 08:11; Admin Dose 325 MG; Start 12/30/18 at 17:30 Atorvastatin Calcium (Lipitor) 40 mg HS PO Last administered on 12/30/18 21:41; Admin Dose 40 MG; Start 12/30/18 at 21:00 Allergies: Coded Allergies: No Known Allergy (Unverified , 12/07/18) Past Surgical History Past Surgical Hx: appendectomy, cholecystectomy, other (Lumpectomy and hys terectomy) Social History Alcohol Use: rarely Smoking Status: Former smoker Drug Use: none EL VAIL Dec 31, 2018 13:26
[2018-12-31] MEDS: ENOXAPARIN 40 MG/0.4 ML SYG SC SCH (13:29)
[2018-12-31] MEDS ORDERED: ATOR40TA68 PO (14:36)
[2018-12-31] MEDS ORDERED: ASPI-817 PO (14:36)
--- NOTE | 2018-12-31 14:37 | PDOCDIS ---
Discharge Instructions CONDITION [id number] Patient Condition: Ohfmf4n Good HOME CARE INSTRUCTIONS: [id number] Diet Instructions: [id number] Reduced Calorie ACTIVITY: [id number] Activity Restrictions: [id number] No Restrictions FOLLOW UP/APPOINTMENTS Follow-up Plan FOLLOW UP WITH YOUR PRIMARY CARE PHYSICIAN IN 1-2 WEEKS ALEX OSCAR Dec 31, 2018 14:36
--- NOTE | 2018-12-31 15:32 | RADRPT ---
Echocardiogram Report Patient Name: SKYE MENDOZAPatient ID: [id number] : 1955 (63y 6m)Study Date: 12/31/2018 9:57:32 AM Gender: FAccession #: [id number] [place] [facility] [place] [facility] Ref.Physician: ALEX OSCAR Height(Cm): 152 BSA: 1.74Weight(Kg): 71.7 Quality: AdequateOrder Physician: ALEX OSCAR Account #: Procedures: Echocardiographic Report: Transthoracic echocardiogram with complete 2D, M-Mode, and doppler examination. Indications: Cerebrovascular Accident. Measurements: 2D/M Mode Doppler Measurement Value Normal Range Measurement Value Normal Range LVIDd 2D 3.6 [ 3.8 - 5.2 ] cm AV Peak Sreedhar 1.1 [ 100.0 - 170.0 ] cm/se c LVIDs 2D 2.4 [ 2.2 - 3.5 ] cm AV Peak PG 5.0 [ 2.0 - 9.0 ] mmHg LVPWd 2D 0.8 [ 0.6 - 0.9 ] cm LVOT Peak Sreedhar 1.0 [ 70.0 - 110.0 ] cm/sec IVSd 2D 1.0 [ 0.6 - 0.9 ] cm LVOT Peak PG 4.0 [ 2.0 - 6.0 ] mmHg AoR Diam 2D 3.2 [ 2.3 - 3.1 ] cm MV E Peak Sreedhar 0.8 [ 60.0 - 130.0 ] cm/sec EDV 2D 55.2 [ 46.0 - 106.0 ] ml MV A Peak Sreedhar 0.5 [ 100.0 - 120.0 ] cm/se c ESV 2D 19.7 [ 14.0 - 42.0 ] ml MV E/A 1.5 [ 0.8 - 1.5 ] ratio EF 2D 64.3 [ 54.0 - 74.0 ] percent MV PHT 64.0 [ 20.0 - 100.0 ] msec LA Dimen 2D 3.5 [ 2.7 - 3.8 ] cm MV Decel Time 219 [ 104 - 258 ] msec MV Decel Anson 4 Lat E` Sreedhar 0.1 [ 10.0 - 15.0 ] cm/sec Lateral E/E` 7.9 [ 1.0 - 2.0 ] ratio Med E` Sreedhar 0.1 cm/sec MV E/A 1.5 [ 0.8 - 1.5 ] ratio MVA PHT 3.4 [ 2.0 - 4.0 ] cm2 PV Peak Sreedhar 0.8 [ 40.0 - 80.0 ] cm/sec PV Peak PG 3.0 mmHg Findings: Left Ventricle: Normal left ventricular systolic function. Normal left ventricular cavity size. Mild hypertrophy of the basal septum. Ejection fraction is visually estimated at 60 %. Tissue Doppler/Mitral Doppler indices are within normal limits. Right Ventricle: Normal right ventricular size. Normal right ventricular systolic function. Left Atrium: The left atrium is normal in size. Right Atrium: The right atrium is normal in size. Atrial Septum: Normal atrial septum. Mitral Valve: Normal appearance of the mitral valve. Mild mitral valve regurgitation. Aortic Valve: No significant aortic stenosis or insufficiency. Aortic sclerosis without significant stenosis. Trileaflet aortic valve. Tricuspid Valve: Normal appearance and function of the tricuspid valve with trace physiologic regurgitation. Pulmonic Valve: Normal pulmonic valve appearance. There is trace pulmonic regurgitation. Pericardium: Normal pericardium with no significant pericardial effusion. Aorta: Normal aortic root. IVC: Normal size and normal respiratory collapse consistent with normal right atrial pressure. Pulmonary Artery: Normal pulmonary artery size. Conclusions: Normal left ventricular systolic function. Normal left ventricular cavity size. Mild hypertrophy of the basal septum. Ejection fraction is visually estimated at 60 %. Tissue Doppler/Mitral Doppler indices are within normal limits. Electronically Signed By: Theron Jensen 2018-12-31 15:31:45 PDT
--- NOTE | 2018-12-31 18:35 | DS ---
Date/Time of Note Date/Time of Note DATE: 12/31/18 TIME: 18:32 Discharge Summary Admission/Discharge Info Admit Date/Time Dec 30, 2018 at 15:26 Discharge Date/Time Dec 31, 2018 at 16:48 Discharge Diagnosis 1. Right-sided weakness Etiology is likely secondary to migraine Patient's history and symptoms are atypical for CVA Neurology consultation appreciated No acute findings on MRI, carotid ultrasound and 2D echo MRI does show chronic lacunar infarct, DC with aspirin statin 2. Hypothyroidism Continue home meds 3. Anxiety Continue home meds 4. Obesity Lifestyle changes 5. History of breast cancer Outpatient follow-up Patient Condition: Good Hospital Course Patient is a 63-year-old female with a history of breast cancer, anxiety, hypothyroidism, obesity who presents with headache and subsequent numbness and weakness in the entire right side of the body. Symptoms were atypical for CVA, diagnostics including MRI, echo and carotid ultrasound negative for acute findings. MRI did show an old lacunar infarct. Patient was seen by neurology, patient was given aspirin and statin and discharged with these medications due to chronic lacunar infarct. Patient's mild right-sided weakness did improve and etiology was likely secondary to migraine. Patient was stable for DC, on the day of discharge patient vitals, labs and his exam are stable. Home Meds Active Scripts Aspirin* (Aspirin* EC) 81 Mg Tablet.dr, 81 MG PO DAILY, #60 TAB Prov:LAEX OSCAR 12/31/18 Atorvastatin* (Atorvastatin*) 40 Mg Tablet, 40 MG PO HS, #60 TAB Prov:ALEX OSCAR 12/31/18 Ibuprofen* (Ibuprofen*) 600 Mg Tablet, 600 MG PO Q6H PRN for PAIN, #20 TAB Prov:BROWN HUSAIN 12/07/18 Methylprednisolone* (Medrol* DOSE PACK) 4 Mg/Dose-Pack Tab.ds.pk, 4 MG PO . DIRECTED, #1 PACKET Prov:WILMA ORTIZ PA-C 09/27/18 Tramadol HCl (Tramadol HCl) 50 Mg Tablet, 50 MG PO Q4 PRN for PAIN, #20 TAB Prov:WILMA ORTIZ PA-C 09/27/18 Cyclobenzaprine Hcl* (Cyclobenzaprine Hcl*) 10 Mg Tablet, 10 MG PO BID, #15 TAB Prov:WILMA ORTIZ PA-C 3/5/19 Hydrocodone/Acetaminophen ([place] 5-325 Tablet) 1 Each Tablet, 1 EACH PO Q6, #15 TAB Prov:NANDINI CORDERO 02/22/18 Ibuprofen* (Motrin*) 600 Mg Tab, 600 MG PO Q6, #30 TAB Prov:NANDINI CORDERO 02/22/18 Promethazine HCl/Codeine (Prometh-Codein 6.25-10 mg/5 ml) 5 Ml Syrup, 5 ML PO Q6 for 7 Days Prov:NANDINI CORDERO 11/01/17 Benzonatate* (Benzonatate*) 200 Mg Capsule, 200 MG PO TID PRN for COUGH, #15 CAP Prov:POPPY SWANSON PA-C 10/30/17 Levofloxacin* (Levaquin*) 500 Mg Tablet, 500 MG PO DAILY for 10 Days, #10 TAB Prov:POPPY SWANSON PA-C 10/30/17 Methylprednisolone* (Medrol* DOSE PACK) 4 Mg/Dose-Pack Tab.ds.pk, 4 MG PO . DIRECTED, #1 PACKET Prov:POPPY SWANSON PA-C 10/30/17 Reported Medications Alprazolam* (Alprazolam*) 0.5 Mg Tablet, 0.5 MG PO BID PRN for ANXIETY, TAB 12/30/18 Baclofen* (Baclofen*) 10 Mg Tablet, 10 MG PO QHS, TAB 12/30/18 [Colace] No Conflict Check 09/04/16 [Linzess] No Conflict Check 09/04/16 [Omeprazole] No Conflict Check 09/04/16 Levothyroxine Sodium* (Levoxyl*) 112 Mcg Tablet, 112 MCG PO BEFORE BREAKFAST, #30 TAB 11/27/15 Follow-up Plan FOLLOW UP WITH YOUR PRIMARY CARE PHYSICIAN IN 1-2 WEEKS Primary Care Provider Not On Staff Doctor Time spent on discharge: > 30 minutes ALEX OSCAR Dec 31, 2018 18:35
== END 2018-12-31 16:48 | disposition home or self-care (01) ==
LOC: E/R 13:43 → TEL 15:26
PROVIDERS: ADMIT Internal Medicine; ATTEND Internal Medicine
DX: R53.1 Weakness (principal); E03.9 Hypothyroidism, unspecified; F41.9 Anxiety disorder, unspecified; E66.9 Obesity, unspecified; Z68.30 Body mass index [BMI] 30.0-30.9, adult; Z85.3 Personal history of malignant neoplasm of breast; Z92.21 Personal history of antineoplastic chemotherapy
CPT/HCPCS: 70450; 70552; 71045; 80048; 80053; 80061; 82962; 83036; 83735; 84100; 84484; 85025; 85610; 85730; 86850; 86900; 86901; 92610; 93005; 93306; 93880; 96374; 97161; J1650; J2060; J3480; J7040; Z7500; Z7502; Z7610; G0378